=== PATIENT | male | born 1995 | race Hispanic/Latino ===

== ENCOUNTER 2016-09-21 02:05 | Emergency (ER) | payer OTHER ==
[2016-09-21] MEDS ORDERED: NORCO 5/325 ONE (02:09)
[2016-09-21] MEDS ORDERED: FLEXERIL ONE (02:12)
[2016-09-21] MEDS ORDERED: NORCO 5/325 PO ONE (02:22)
[2016-09-21] MEDS ORDERED: FLEXERIL PO ONE (02:22)
[2016-09-21 02:56] VITALS: BP 128/85
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
== END 2016-09-21 04:30 | disposition home or self-care (01) ==
LOC: ED 02:05
DX: M79.641 Pain in right hand (principal); M54.5 Low back pain
CPT/HCPCS: 72100